=== PATIENT | female | born 2000 | race Caucasian/White ===

== ENCOUNTER 2022-01-09 20:02 | Emergency (ER) | payer OTHER ==
[2022-01-09 20:15] VITALS: BP 100/62; PULSE 70; TEMP 98; BMI 30.9
[2022-01-09 22:51] LABS: BASO % 0.6 % (0-2.0); EOS % 0.9 % (0-4.5); HEMATOCRIT 39.6 % (32.4-45.2); HEMOGLOBIN 13.7 GM/dL (10.7-15.3); MCHC 34.4 g/dl (32.0-36.0); MEAN CELL VOLUME 89.9 fl (80-96); MEAN PLT VOLUME 7.9 fl (7.5-11.1); NEUT % 62.5 % (42.8-82.8); PLATELET COUNT 301 10^3/uL (134-434); RBC 4.41 M/mm3 (3.60-5.2); RDW 13.8 % (11.6-15.6); WHITE BLOOD COUNT 9.1 K/mm3 (4.0-10.0)
[2022-01-09 22:59] LABS: INR 1.01 (0.83-1.09); PROTHROMBIN TIME (PATIENT) 11.6 SEC (9.7-13.0)
[2022-01-09 23:02] LABS: ACTIVATED PTT 36.5 SECONDS (25.2-36.5)
[2022-01-09] MEDS ORDERED: ACETAMINOPHEN 325 MG TABLET (FP) PO ONE (23:05)
[2022-01-09 23:10] LABS: BLOOD UREA NITROGEN 9.8 mg/dL (7-18); CALCIUM 9.1 mg/dL (8.5-10.1)
[2022-01-09 23:13] LABS: CREATININE 0.5 mg/dL (0.55-1.3)
[2022-01-09 23:15] LABS: BILIRUBIN,TOTAL 0.9 mg/dL (0.2-1); TOT PROT 8.1 g/dl (6.4-8.2)
[2022-01-09] MEDS ORDERED: ACETAMINOPHEN 325 MG TABLET (FP) ONE (23:17)
== END 2022-01-10 02:31 | disposition home or self-care (01) ==
LOC: JER 20:02
DX: O20.8 Other hemorrhage in early pregnancy (principal)
CPT/HCPCS: 36415; 76830-TC; 80053; 84702; 85025; 85610; 85730; 86850; 86900; 86901; 99284-25